=== PATIENT | female | born 1955 | race Caucasian/White ===

== ENCOUNTER → 2024-06-02 09:25 | Outpatient (REF) | payer MEDICARE, OTHER, SELFPAY | LOC: RAD 09:25 | PROVIDERS: ATTENDING PHYSICIAN Family Medicine | DX: I70.0 Atherosclerosis of aorta (principal); E03.9 Hypothyroidism, unspecified; E78.2 Mixed hyperlipidemia; Z82.49 Family history of ischemic heart disease and other diseases of the circulatory system | CPT/HCPCS: 75571 ==

== ENCOUNTER → 2024-06-30 13:40 | Outpatient (REF) | payer MEDICARE, OTHER, SELFPAY | LOC: RCS 13:40 | PROVIDERS: ATTENDING PHYSICIAN Family Medicine | DX: R93.1 Abnormal findings on diagnostic imaging of heart and coronary circulation (principal) | CPT/HCPCS: 93306 ==

== ENCOUNTER → 2025-04-24 09:50 | Outpatient (REF) | payer MEDICARE, OTHER, SELFPAY | LOC: WDC 09:50 | PROVIDERS: ATTENDING PHYSICIAN Family Medicine | DX: N95.1 Menopausal and female climacteric states (principal); Z12.31 Encounter for screening mammogram for malignant neoplasm of breast; Z78.0 Asymptomatic menopausal state | CPT/HCPCS: 77063; 77067; 77080 ==

== ENCOUNTER → 2025-06-05 14:45 | Outpatient (REF) | payer MEDICARE, OTHER, SELFPAY | LOC: HWRAD 14:45 | PROVIDERS: ATTENDING PHYSICIAN Student in an Organized Health Care Education/Training Program; FAMILY PHYSICIAN Family Medicine | DX: R22.1 Localized swelling, mass and lump, neck (principal) | CPT/HCPCS: 76536 ==

== ENCOUNTER → 2025-06-24 07:25 | Outpatient (REF) | payer MEDICARE, OTHER, SELFPAY | LOC: RAD 07:25 | PROVIDERS: ATTENDING PHYSICIAN Student in an Organized Health Care Education/Training Program; FAMILY PHYSICIAN Family Medicine | DX: R22.1 Localized swelling, mass and lump, neck (principal) | CPT/HCPCS: 70491; Q9967 ==

== ENCOUNTER → 2025-07-06 12:17 | Outpatient (REF) | payer MEDICARE, OTHER, SELFPAY ==
[2025-07-06 12:42] VITALS: BP 131/60; BP_SYST 79
== END ==
LOC: RADI 12:17
PROVIDERS: ATTENDING PHYSICIAN Student in an Organized Health Care Education/Training Program; FAMILY PHYSICIAN Family Medicine
DX: R22.1 Localized swelling, mass and lump, neck (principal); Z53.8 Procedure and treatment not carried out for other reasons
CPT/HCPCS: 76536

== ENCOUNTER → 2025-08-05 09:45 | Outpatient (REF) | payer MEDICARE, OTHER, SELFPAY | LOC: RAD 09:45 | PROVIDERS: ATTENDING PHYSICIAN Student in an Organized Health Care Education/Training Program; FAMILY PHYSICIAN Family Medicine | DX: R22.1 Localized swelling, mass and lump, neck (principal) | CPT/HCPCS: 76536 ==